=== PATIENT | male | born 1980 ===

== ENCOUNTER 2021-10-25 21:45 | Emergency (ER) | payer SELFPAY ==
[~2021-10-25] VITALS: Ht 180.3 cm; Wt 83.9 kg
[2021-10-25 22:00] VITALS: BP 133/93
== END 2021-10-25 23:19 | disposition left against medical advice (07) ==
LOC: ER 21:45
DX: S61.412A Laceration without foreign body of left hand, initial encounter (principal); R51.9 Headache, unspecified; Z53.21 Procedure and treatment not carried out due to patient leaving prior to being seen by health care provider; W22.8XXA Striking against or struck by other objects, initial encounter; Y93.89 Activity, other specified; Y92.89 Other specified places as the place of occurrence of the external cause; Y99.8 Other external cause status
CPT/HCPCS: 70450; 73130